=== PATIENT | male | born 1960 | race Caucasian/White ===

== ENCOUNTER 2018-12-30 13:38 | Emergency (ER) | payer MEDICARE ==
[~2018-12-30] VITALS: Ht 188 cm; Wt 80.0 kg
[~2018-12-30 13:38] MED LIST: AUGMENTIN500TAB PO; CORDARONE/200 MG/TAB PO; LASIX40 MG PO; METOPROL TAR25 MG PO; PLAVIX75 MG PO; SAVAYSA60 MG PO; SPIRONOLACT25 MG PO
[2018-12-30] MEDS ORDERED: FLEXERIL PO (15:16)
[2018-12-30] MEDS ORDERED: TRAMADOL HYDROC50 MG PO (15:16)
[2018-12-30 16:24] VITALS: BP 132/79
== END 2018-12-30 16:24 | disposition home or self-care (01) ==
LOC: ED 13:38
DX: M47.816 Spondylosis without myelopathy or radiculopathy, lumbar region (principal); I50.9 Heart failure, unspecified; Z95.810 Presence of automatic (implantable) cardiac defibrillator

== ENCOUNTER 2018-12-31 14:40 | Emergency (ER) | payer MEDICARE ==
[~2018-12-31] VITALS: Ht 188 cm; Wt 81.0 kg
[~2018-12-31 14:40] MED LIST changes: +FLEXERIL PO; +TRAMADOL HYDROC50 MG PO
[2018-12-31 15:21] LABS: HEMATOCRIT 41.8 % (39.0-50.0); HEMOGLOBIN 14.5 g/dl (14.0-18.0); IMMATURE GRANULOCYTES 0.5 % (0.0-5.0); MEAN CELL VOLUME 98.8 fL CALC (80.0-100.0); MEAN CORPUSCULAR HGB 34.3 pG CALC (26.0-32.0); MEAN CORPUSCULAR HGB CONC 34.7 g/L CALC (32.0-36.0); NEUT# 4.34 thou/uL (1.82-7.42); RED BLOOD COUNT 4.23 mill/uL (4.70-6.10); RED CELL DISTRI WIDTH 12.2 % (11.5-15.5)
[2018-12-31 15:44] LABS: ALKALINE PHOSPHATASE 99 u/l (38-126); BUN 6 mg/dL (9-20); BUN/CREATININE RATIO 12 (12-20 (CALC)); CARBON DIOXIDE 22 mmol/l (22-30); CHLORIDE 99 mmol/l (95-108); CREATININE 0.5 mg/dL (0.7-1.3); GFR > 60 ML/MIN (>=60 (CALC)); GFR FOR AFR.AMER. > 60 ML/MIN (>=60 (CALC)); POTASSIUM 3.7 mmol/l (3.5-5.1); SGOT/AST 72 u/l (17-59); TOTAL PROTEIN 6.5 g/dL (6.3-8.2)
[2018-12-31 15:48] LABS: ALBUMIN 3.1 g/dL (3.2-5.0); ANION GAP 15 (6-22 (CALC)); BILIRUBIN, TOTAL 1.8 mg/dL (0.0-1.4); SODIUM 132 mmol/l (137-146)
[2018-12-31 16:44] VITALS: BP 132/73
== END 2018-12-31 17:05 | disposition home or self-care (01) ==
LOC: ED 14:40
PROVIDERS: Family Medicine
DX: R53.83 Other fatigue (principal); M54.5 Low back pain; I50.9 Heart failure, unspecified; I48.91 Unspecified atrial fibrillation; F17.210 Nicotine dependence, cigarettes, uncomplicated; Z72.89 Other problems related to lifestyle; Z95.810 Presence of automatic (implantable) cardiac defibrillator